=== PATIENT | male | born 1975 | race African-American/Black ===

== ENCOUNTER → 2016-09-22 | Outpatient (CLI) | payer OTHER ==
--- NOTE | 2016-09-22 08:20 | US ---
EXAMINATION TYPE: US scrotum with doppler. Grayscale and color Doppler Duplex imaging performed of t he scrotum. DATE OF EXAM: 09/22/2016 8:06 AM COMPARISON: NONE CLINICAL HISTORY: N50.89 Other specified disorders of the male genital organs. left testicular pain/p ressure EXAM MEASUREMENTS: TESTICLES: Right Testicle: 4.6 x 2.6 x 3.0 cm Left Testicle: 4.5 x 2.7 x 2.8 cm EPIDIDYMIS HEAD: Right Epididymis: 0.8 x 0.7 x 1.0 cm Left Epididymis: 0.9 x 0.8 x 1.1 cm Doppler performed to assess for testicular vascularity; good bilateral color flow and waveforms are s een. There is no evidence of testicular torsion. minimal fluid seen bilaterally, more on left. IMPRESSION: Tiny bilateral hydroceles.
== END | disposition home or self-care (01) ==
LOC: RADUSWWP 07:29
PROVIDERS: ATTEND Internal Medicine
DX: N43.2 Other hydrocele (principal)
CPT/HCPCS: 76870; 93975

== ENCOUNTER 2017-03-18 13:29 | Emergency (ER) | payer OTHER ==
[2017-03-18] MEDS ORDERED: HYDROmorphone 1 MG/ML 1 ML SYRINGE IVP STA (13:39)
[2017-03-18] MEDS ORDERED: ONDANSETRON 4 MG/2 ML VIAL IVP STA (13:39)
[2017-03-18 14:00] LABS: Anisocytosis Slight; Basophils # (A) 0.1 k/uL (0-0.2); Basophils % (A) 1 %; CH 26.5; CHCM 32.4; Eosinophils # (A) 0.3 k/uL (0-0.7); Eosinophils % (A) 3 %; HCT 51.7 % (39.0-53.0); HDW 2.67; HGB 15.8 gm/dL (13.0-17.5); Luc # (Auto) 0.16; Luc % (Auto) 2; Lymphocytes # (A) 3.6 k/uL (1.0-4.8); Lymphocytes % (A) 34 %; MCH 25.1 pg (25.0-35.0); MCHC 30.6 g/dL (31.0-37.0); MCV 82.2 fL (80.0-100.0); Mean Platelet Volume 7.9; Monocytes # (A) 0.6 k/uL (0-1.0); Monocytes % (A) 6 %; Neutrophils % (A) 56 %; RBC 6.29 m/uL (4.30-5.90); WBC 10.8 k/uL (3.8-10.6); WBC (Perox) 10.61
[2017-03-18 14:09] LABS: Appearance,Urine Clear (Clear); Bacteria,Urine Rare /hpf; Bilirubin,Urine Negative (Negative); Glucose,Urine (UA) Negative (Negative); Ketones,Urine Negative (Negative); Leukocyte Esterase,Urine Negative (Negative); Mucus,Urine Moderate /hpf; Nitrite,Urine Negative (Negative); PH, Urine 5.5 (5.0-8.0); Particle Count 4731; Protein,Urine Trace (Negative); RBC,Urine >182 /hpf (0-5); Specific Gravity,Urine 1.024 (1.001-1.035); Squamous Epithelial Cell,Urine <1 /hpf (0-4); UA Billing (MACRO vs. MICRO) MICRO; WBC,Urine 1 /hpf (0-5)
[2017-03-18 14:10] LABS: ALT 28 U/L (21-72); AST 25 U/L (17-59); Alkaline Phosphatase 50 U/L (38-126); Anion Gap 12 mmol/L; Blood Urea Nitrogen 21 mg/dL (9-20); Calcium 9.5 mg/dL (8.4-10.2); Carbon Dioxide 20 mmol/L (22-30); Chloride 109 mmol/L (98-107); Glucose 123 mg/dL (74-99); Non-African American GFR(MDRD) >60 (>60 ml/min/1.73 sqM); Potassium 4.2 mmol/L (3.5-5.1); Sodium 141 mmol/L (137-145); Total Bilirubin 0.5 mg/dL (0.2-1.3)
--- NOTE | 2017-03-18 14:34 | US ---
EXAMINATION TYPE: US scrotum with doppler. Grayscale and color Doppler Duplex imaging performed of t keri scrotum. DATE OF EXAM: 03/18/2017 COMPARISON: 09/22/2016 CLINICAL HISTORY: Extreme pain in groin, scrotum and pelvis. EXAM MEASUREMENTS: TESTICLES: Right Testicle: 4.5 x 2.5 x 2.8 cm Left Testicle: 4.7 x 2.2 x 3.0 cm EPIDIDYMIS HEAD: Right Epididymis: 1.0 cm Left Epididymis: 1.0 cm Doppler performed to assess for testicular vascularity; good bilateral color flow and waveforms are s een. There is no evidence of testicular torsion. Presence of hydroceles: no Presence of varicoceles: Patient unable to perform valsalva due to extreme pain IMPRESSION: Negative exam. No evidence of testicular torsion or mass. Small bilateral hydroceles bonnie lar to old exam.
[2017-03-18] MEDS ORDERED: LORazepam 2 MG/ML SYRINGE IV STA (14:41)
[2017-03-18] MEDS ORDERED: KETOROLAC 30 MG/ML 1 ML VIAL IVP STA (14:41)
--- NOTE | 2017-03-18 14:55 | CT ---
EXAMINATION TYPE: CT abdomen pelvis wo con DATE OF EXAM: 03/18/2017 COMPARISON: NONE HISTORY: RLQ and Right groin pain CT DLP: 2430 mGycm Automated exposure control for dose reduction was used. TECHNIQUE: Helical acquisition of images was performed from the lung bases through the pelvis. FINDINGS: Lung bases are clear. There is no pleural effusion. Liver spleen pancreas gallbladder appear normal. Bile ducts are not dilated. There is no adrenal mass. Kidneys have normal size and contour. There is slight fullness of the right upper collecting system. I see no calculus within the kidneys. There is no evidence of a renal mass. There is a 2 mm calcification at the floor of the pelvis on the right side that could be a stone in the distal right ureter. Bladder is almost empty. There is no evidence of a pelvic mass. I see no intestinal wall thickening. There are no dilated loops. Appendix appears normal. There is no retroperitoneal adenopathy. There is no ascites. There is posterior moderate disc herniat ion at L4-5 with spinal stenosis and calcification. There is facet arthropathy and developmentally sm all spinal canal and some spinal stenosis is present also at L3-4. There is 2 x 1 cm umbilical hernia that contains omental fat. IMPRESSION: THERE IS VERY MILD RIGHT-SIDED HYDRONEPHROSIS AND I SUSPECT A TINY CALCULUS AT THE RIGHT URETEROVESIC AL JUNCTION. NORMAL APPENDIX. SPINAL STENOSIS AT L3-4 AND L4-5. SMALL UMBILICAL HERNIA.
--- NOTE | 2017-03-18 15:01 | ED ---
Abdominal Pain HPI - General Chief Complaint: Abdominal Pain Stated Complaint: Abd Pain Time Seen by Provider: 03/18/17 13:38 Source: patient, RN notes reviewed Mode of arrival: wheelchair Limitations: no limitations - History of Present Illness Initial Comments: 41-year-old male presents emergency Department chief complaint of right lower quadrant abdominal pain, right testicular pain. Patient states this started earlier today. Patient has no history kidney stones. Patient's and nausea and states it feels like he has to have a bowel movement denies any diarrhea, constipation vomiting patient denies any dysuria hematuria. Patient had no prior abdominal surgeries. - Related Data Home Medications Medication Instructions Recorded Confirmed Naproxen [Naprosyn] 375 mg PO Q12HR 03/18/17 03/18/17 amLODIPine [Norvasc] 5 mg PO DAILY 03/18/17 03/18/17 Previous Rx's Medication Instructions Recorded Hydrocodone/Acetaminophen [Gratis 1 tab PO Q6HR PRN #20 tab 03/18/17 5-325] Ibuprofen [Motrin] 600 mg PO Q8HR PRN #30 tab 03/18/17 Ondansetron Odt [Zofran Odt] 4 mg PO Q8HR PRN #10 tab 03/18/17 Tamsulosin [Flomax] 0.4 mg PO DAILY #7 cap 03/18/17 Allergies Allergy/AdvReac Type Severity Reaction Status Date / Time Penicillins Allergy Unknown Verified 03/18/17 14:01 Review of Systems ROS Statement: Those systems with pertinent positive or pertinent negative responses have been documented in the HPI. ROS Other: All systems not noted in ROS Statement are negative. Past Medical History Past Medical History: Hypertension History of Any Multi-Drug Resistant Organisms: None Reported Past Surgical History: No Surgical Hx Reported Past Psychological History: No Psychological Hx Reported Smoking Status: Current every day smoker Past Alcohol Use History: None Reported Past Drug Use History: None Reported General Exam Limitations: no limitations General appearance: alert, in no apparent distress Head exam: Present: atraumatic, normocephalic, normal inspection Respiratory exam: Present: normal lung sounds bilaterally. Absent: respiratory distress, wheezes, rales, rhonchi, stridor Cardiovascular Exam: Present: regular rate, normal rhythm, normal heart sounds. Absent: systolic murmur, diastolic murmur, rubs, gallop, clicks GI/Abdominal exam: Present: soft, tenderness (mild right-sided right flank), normal bowel sounds. Absent: distended, guarding, rebound, rigid Back exam: Present: CVA tenderness (R). Absent: CVA tenderness (L) Neurological exam: Present: alert, oriented X3, CN II-XII intact Course Vital Signs 03/18/17 03/18/17 13:32 14:50 Temperature 98.4 F Pulse Rate 74 67 Respiratory 18 22 Rate Blood Pressure 179/109 169/82 O2 Sat by Pulse 99 96 Oximetry Medical Decision Making - Medical Decision Making 41-year-old presented for right flank right lower quadrant abdominal pain. patient has a 2 mm uvj stone. patient will be discharged with pain medication, flomax, and denies medication. return parameters were discussed. - Lab Data Result diagrams: 03/18/17 13:43 03/18/17 13:43 Lab Results 03/18/17 03/18/17 03/18/17 Range/Units 13:43 13:43 13:50 WBC 10.8 H (3.8-10.6) k/uL RBC 6.29 H (4.30-5.90) m/uL Hgb 15.8 (13.0-17.5) gm/dL Hct 51.7 (39.0-53.0) % MCV 82.2 (80.0-100.0) fL MCH 25.1 (25.0-35.0) pg MCHC 30.6 L (31.0-37.0) g/dL RDW 16.0 H (11.5-15.5) % Plt Count 211 (150-450) k/uL Neutrophils % 56 % Lymphocytes % 34 % Monocytes % 6 % Eosinophils % 3 % Basophils % 1 % Neutrophils # 6.0 (1.3-7.7) k/uL Lymphocytes # 3.6 (1.0-4.8) k/uL Monocytes # 0.6 (0-1.0) k/uL Eosinophils # 0.3 (0-0.7) k/uL Basophils # 0.1 (0-0.2) k/uL Anisocytosis Slight Sodium 141 (137-145) mmol/L Potassium 4.2 (3.5-5.1) mmol/L Chloride 109 H (98-107) mmol/L Carbon Dioxide 20 L (22-30) mmol/L Anion Gap 12 mmol/L BUN 21 H (9-20) mg/dL Creatinine 1.04 (0.66-1.25) mg/dL Est GFR (MDRD) Af Amer >60 (>60 ml/min/1.73 sqM) Est GFR (MDRD) Non-Af >60 (>60 ml/min/1.73 sqM) Glucose 123 H (74-99) mg/dL Calcium 9.5 (8.4-10.2) mg/dL Total Bilirubin 0.5 (0.2-1.3) mg/dL AST 25 (17-59) U/L ALT 28 (21-72) U/L Alkaline Phosphatase 50 (38-126) U/L Total Protein 7.0 (6.3-8.2) g/dL Albumin 4.2 (3.5-5.0) g/dL Urine Color Yellow Urine Appearance Clear (Clear) Urine pH 5.5 (5.0-8.0) Ur Specific [place] 1.024 (1.001-1.035) Urine Protein Trace H (Negative) Urine Glucose (UA) Negative (Negative) Urine Ketones Negative (Negative) Urine Blood Large H (Negative) Urine Nitrite Negative (Negative) Urine Bilirubin Negative (Negative) Urine Urobilinogen 2.0 (<2.0) mg/dL Ur Leukocyte Esterase Negative (Negative) Urine RBC >182 H (0-5) /hpf Urine WBC 1 (0-5) /hpf Ur Squamous Epith Cells <1 (0-4) /hpf Urine Bacteria Rare H (None) /hpf Urine Mucus Moderate H (None) /hpf Disposition Clinical Impression: Ureteral calculi, Abdominal pain Disposition: HOME SELF-CARE Condition: Stable Instructions: Kidney Stones (ED) Additional Instructions: Please return to the Emergency Department if symptoms worsen or any other concerns. Prescriptions: Hydrocodone/Acetaminophen [Gratis 5-325] 1 tab PO Q6HR PRN #20 tab PRN Reason: Pain Ibuprofen [Motrin] 600 mg PO Q8HR PRN #30 tab PRN Reason: Pain Ondansetron Odt [Zofran Odt] 4 mg PO Q8HR PRN #10 tab PRN Reason: Nausea Tamsulosin [Flomax] 0.4 mg PO DAILY #7 cap Referrals: Beverly Wills MD [Primary Care Provider] - 1-2 days Time of Disposition: 15:00
[2017-03-18 15:28] VITALS: BP 166/76; PULSE 66; RESP 18; TEMP 97.9
== END 2017-03-18 15:25 | disposition home or self-care (01) ==
LOC: EC 13:29
DX: N20.1 Calculus of ureter (principal); N50.811 Right testicular pain; R11.0 Nausea; I10 Essential (primary) hypertension; F17.200 Nicotine dependence, unspecified, uncomplicated; Z79.899 Other long term (current) drug therapy; Z88.0 Allergy status to penicillin
CPT/HCPCS: 36415; 80053; 85025; 81001; 93975; 76870; 74176; 99284; 96374; 96375 ×3; J2060; J2405; J1885; J1170

== ENCOUNTER 2017-07-15 14:58 | Inpatient (IN) | payer OTHER ==
[2017-07-15] MEDS ORDERED: SODIUM CHLORIDE 0.9% 1,000 ML IV STA ×3 (15:20→16:50)
[2017-07-15] MEDS ORDERED: SODIUM CHLORIDE 0.9% 500 ML IV STA ×2 (15:20→16:50)
[2017-07-15] MEDS ORDERED: IPRATROPIUM-ALBUTEROL 3 ML NEB INHALATION STA (15:21)
[2017-07-15] MEDS ORDERED: ACETAMINOPHEN IV (For NPO) 1,000 MG in EMPTY BAG 1 BAG IVPB STA (15:21)
[2017-07-15] MEDS ORDERED: KETOROLAC 30 MG/ML 1 ML VIAL IVP STA (15:21)
[2017-07-15] MEDS ORDERED: AZITHROMYCIN 500 MG in SODIUM CHLORIDE 0.9% 250 ML IVPB STA (15:28)
--- NOTE | 2017-07-15 15:28 | ED ---
General Adult HPI - General Chief complaint: Shortness of Breath Stated complaint: Allergic Reaction Time Seen by Provider: 07/15/17 15:05 Source: patient, EMS, RN notes reviewed, old records reviewed Mode of arrival: EMS Limitations: no limitations - History of Present Illness Initial comments: This is a 42-year-old male to the ER for evaluation. Patient is safe for evaluation regards to multiple complaints. Patient 22 of shortness of breath body 8 chest pain abdominal pain fever nasal congestion right ear pain. Patient also complains of significant diarrhea consistent diarrhea for about 3 days now occasional blood. Patient has asked history of smoking. Patient states he takes no significant medical medications on a regular basis. Per EMS to transfer patient was given steroids for cough and shortness of breath and he became even worsening shortness of breath like his throat was closing was given epi and that did resolve. Patient states at this time he feels I do not think is in a passed out. - Related Data Home Medications Medication Instructions Recorded Confirmed amLODIPine [Norvasc] 5 mg PO DAILY 03/18/17 07/15/17 Escitalopram [Lexapro] 10 mg PO DAILY 07/15/17 07/15/17 traMADol HCL [Ultram] 50 mg PO DAILY PRN 07/15/17 07/15/17 Previous Rx's Medication Instructions Recorded Ibuprofen [Motrin] 600 mg PO Q8HR PRN #30 tab 03/18/17 Allergies Allergy/AdvReac Type Severity Reaction Status Date / Time methylprednisolone Allergy Severe Anaphylaxis Verified 07/15/17 15:21 Penicillins Allergy Unknown Verified 03/18/17 14:01 Review of Systems ROS Statement: Those systems with pertinent positive or pertinent negative responses have been documented in the HPI. ROS Other: All systems not noted in ROS Statement are negative. Past Medical History Past Medical History: Hypertension History of Any Multi-Drug Resistant Organisms: None Reported Past Surgical History: No Surgical Hx Reported Past Psychological History: PTSD Smoking Status: Current every day smoker Past Alcohol Use History: None Reported Past Drug Use History: None Reported General Exam Limitations: no limitations General appearance: alert, in no apparent distress, anxious Head exam: Present: atraumatic, normocephalic, normal inspection Eye exam: Present: normal appearance, PERRL, EOMI. Absent: scleral icterus, conjunctival injection, periorbital swelling ENT exam: Present: normal exam, mucous membranes moist. Absent: TM's normal bilaterally (Patient does have right ear TM purulence) Neck exam: Present: normal inspection. Absent: tenderness, meningismus, lymphadenopathy Respiratory exam: Present: normal lung sounds bilaterally. Absent: respiratory distress, wheezes, rales, rhonchi, stridor Cardiovascular Exam: Present: normal rhythm, tachycardia, normal heart sounds. Absent: systolic murmur, diastolic murmur, rubs, gallop, clicks GI/Abdominal exam: Present: soft, normal bowel sounds. Absent: distended, tenderness, guarding, rebound, rigid Extremities exam: Present: normal inspection, full ROM, normal capillary refill. Absent: tenderness, pedal edema, joint swelling, calf tenderness Back exam: Present: normal inspection Neurological exam: Present: alert, oriented X3, CN II-XII intact Psychiatric exam: Present: normal affect, normal mood Skin exam: Present: warm, dry, intact, normal color. Absent: rash Course Vital Signs 07/15/17 07/15/17 07/15/17 15:15 15:59 16:13 Temperature 100.9 F H Pulse Rate 106 H 97 99 Respiratory 24 Rate Blood Pressure 146/83 O2 Sat by Pulse 96 Oximetry 07/15/17 16:21 Temperature Pulse Rate 103 H Respiratory 22 Rate Blood Pressure 146/66 O2 Sat by Pulse 95 Oximetry - Reevaluation(s) Reevaluation #1: 07/15/17 16:54 Patient feels significantly improved with fever control and resuscitation EKG Findings - EKG Comments: EKG Findings:: EKG shows normal sinus rhythm rate of 100, CO 140, QRS 96, QTc 446 Medical Decision Making - Medical Decision Making 42 male the ER for evaluation of cough and congestion, fever, diarrhea. Patient does have flu a with severe dehydration, patient will be admitted for a left shoulder replacement, resuscitation and monitoring of hemodynamic status. - Lab Data Result diagrams: 07/15/17 16:10 07/15/17 16:10 Lab Results 07/15/17 07/15/17 07/15/17 Range/Units 15:45 16:10 16:10 WBC 11.6 H (3.8-10.6) k/uL RBC 5.66 (4.30-5.90) m/uL Hgb 14.5 (13.0-17.5) gm/dL Hct 44.7 (39.0-53.0) % MCV 79.0 L (80.0-100.0) fL MCH 25.6 (25.0-35.0) pg MCHC 32.4 (31.0-37.0) g/dL RDW 15.7 H (11.5-15.5) % Plt Count 173 (150-450) k/uL Neutrophils % 82 % Lymphocytes % 11 % Monocytes % 4 % Eosinophils % 1 % Basophils % 1 % Neutrophils # 9.6 H (1.3-7.7) k/uL Lymphocytes # 1.3 (1.0-4.8) k/uL Monocytes # 0.5 (0-1.0) k/uL Eosinophils # 0.1 (0-0.7) k/uL Basophils # 0.1 (0-0.2) k/uL PT (9.0-12.0) sec INR (<1.2) APTT (22.0-30.0) sec D-Dimer (<0.60) mg/L FEU Sodium (137-145) mmol/L Potassium (3.5-5.1) mmol/L Chloride (98-107) mmol/L Carbon Dioxide (22-30) mmol/L Anion Gap mmol/L BUN (9-20) mg/dL Creatinine (0.66-1.25) mg/dL Est GFR (MDRD) Af Amer (>60 ml/min/1.73 sqM) Est GFR (MDRD) Non-Af (>60 ml/min/1.73 sqM) Glucose (74-99) mg/dL Plasma Lactic Acid Yousif (0.7-2.0) mmol/L Calcium (8.4-10.2) mg/dL Phosphorus (2.5-4.5) mg/dL Magnesium (1.6-2.3) mg/dL Total Bilirubin (0.2-1.3) mg/dL AST (17-59) U/L ALT (21-72) U/L Alkaline Phosphatase (38-126) U/L Total Protein (6.3-8.2) g/dL Albumin (3.5-5.0) g/dL Urine Color Yellow Urine Appearance Clear (Clear) Urine pH 6.0 (5.0-8.0) Ur Specific [place] 1.030 (1.001-1.035) Urine Protein 2+ H (Negative) Urine Glucose (UA) Negative (Negative) Urine Ketones 1+ H (Negative) Urine Blood Trace H (Negative) Urine Nitrite Negative (Negative) Urine Bilirubin Negative (Negative) Urine Urobilinogen 2.0 (<2.0) mg/dL Ur Leukocyte Esterase Negative (Negative) Urine RBC 1 (0-5) /hpf Urine WBC 7 H (0-5) /hpf Ur Squamous Epith Cells 2 (0-4) /hpf Amorphous Sediment Rare H (None) /hpf Hyaline Casts 3 H (0-2) /lpf Urine Mucus Many H (None) /hpf Influenza Type A RNA Detected H (Not Detectd) Influenza Type B (PCR) Not Detected (Not Detectd) 07/15/17 07/15/17 07/15/17 Range/Units 16:10 16:10 16:10 WBC (3.8-10.6) k/uL RBC (4.30-5.90) m/uL Hgb (13.0-17.5) gm/dL Hct (39.0-53.0) % MCV (80.0-100.0) fL MCH (25.0-35.0) pg MCHC (31.0-37.0) g/dL RDW (11.5-15.5) % Plt Count (150-450) k/uL Neutrophils % % Lymphocytes % % Monocytes % % Eosinophils % % Basophils % % Neutrophils # (1.3-7.7) k/uL Lymphocytes # (1.0-4.8) k/uL Monocytes # (0-1.0) k/uL Eosinophils # (0-0.7) k/uL Basophils # (0-0.2) k/uL PT 10.3 (9.0-12.0) sec INR 1.1 (<1.2) APTT 27.0 (22.0-30.0) sec D-Dimer 0.39 (<0.60) mg/L FEU Sodium 138 (137-145) mmol/L Potassium 3.3 L (3.5-5.1) mmol/L Chloride 102 (98-107) mmol/L Carbon Dioxide 23 (22-30) mmol/L Anion Gap 13 mmol/L BUN 14 (9-20) mg/dL Creatinine 0.82 (0.66-1.25) mg/dL Est GFR (MDRD) Af Amer >60 (>60 ml/min/1.73 sqM) Est GFR (MDRD) Non-Af >60 (>60 ml/min/1.73 sqM) Glucose 153 H (74-99) mg/dL Plasma Lactic Acid Yousif 3.7 H* (0.7-2.0) mmol/L Calcium 8.8 (8.4-10.2) mg/dL Phosphorus 2.0 L (2.5-4.5) mg/dL Magnesium 1.8 (1.6-2.3) mg/dL Total Bilirubin 0.4 (0.2-1.3) mg/dL AST 40 (17-59) U/L ALT 58 (21-72) U/L Alkaline Phosphatase 79 (38-126) U/L Total Protein 6.2 L (6.3-8.2) g/dL Albumin 3.7 (3.5-5.0) g/dL Urine Color Urine Appearance (Clear) Urine pH (5.0-8.0) Ur Specific [place] (1.001-1.035) Urine Protein (Negative) Urine Glucose (UA) (Negative) Urine Ketones (Negative) Urine Blood (Negative) Urine Nitrite (Negative) Urine Bilirubin (Negative) Urine Urobilinogen (<2.0) mg/dL Ur Leukocyte Esterase (Negative) Urine RBC (0-5) /hpf Urine WBC (0-5) /hpf Ur Squamous Epith Cells (0-4) /hpf Amorphous Sediment (None) /hpf Hyaline Casts (0-2) /lpf Urine Mucus (None) /hpf Influenza Type A RNA (Not Detectd) Influenza Type B (PCR) (Not Detectd) - Radiology Data Radiology results: report reviewed (Chest x-ray with KUB is negative), image reviewed Disposition Clinical Impression: Acute exacerbation of chronic obstructive airways disease, Influenza A, Fever Disposition: ADMITTED IP TO THIS HOSP Condition: Good Referrals: Beverly Wills MD [Primary Care Provider] - 1-2 days
[2017-07-15 16:26] LABS: Basophils # (A) 0.1 k/uL (0-0.2); Basophils % (A) 1 %; Eosinophils # (A) 0.1 k/uL (0-0.7); Eosinophils % (A) 1 %; HCT 44.7 % (39.0-53.0); HGB 14.5 gm/dL (13.0-17.5); Lymphocytes # (A) 1.3 k/uL (1.0-4.8); Lymphocytes % (A) 11 %; MCH 25.6 pg (25.0-35.0); MCHC 32.4 g/dL (31.0-37.0); Mean Platelet Volume 7.6; Monocytes # (A) 0.5 k/uL (0-1.0); Monocytes % (A) 4 %; Neutrophils # (A) 9.6 k/uL (1.3-7.7); Neutrophils % (A) 82 %; Platelet Count 173 k/uL (150-450); RBC 5.66 m/uL (4.30-5.90); RDW 15.7 % (11.5-15.5); WBC 11.6 k/uL (3.8-10.6)
[2017-07-15] MEDS ORDERED: OSELTAMIVIR 75 MG CAP PO STA (16:30)
[2017-07-15 16:39] LABS: ALT 58 U/L (21-72); AST 40 U/L (17-59); Albumin 3.7 g/dL (3.5-5.0); Alkaline Phosphatase 79 U/L (38-126); Anion Gap 13 mmol/L; Blood Urea Nitrogen 14 mg/dL (9-20); Calcium 8.8 mg/dL (8.4-10.2); Carbon Dioxide 23 mmol/L (22-30); Chloride 102 mmol/L (98-107); Glucose 153 mg/dL (74-99); Magnesium 1.8 mg/dL (1.6-2.3); Potassium 3.3 mmol/L (3.5-5.1); Sodium 138 mmol/L (137-145); Total Bilirubin 0.4 mg/dL (0.2-1.3); Total Protein 6.2 g/dL (6.3-8.2)
[2017-07-15 16:40] LABS: D-Dimer 0.39 mg/L FEU (<0.60); INR 1.1 (<1.2); Prothrombin Time 10.3 sec (9.0-12.0)
[2017-07-15 16:47] LABS: Amorphous Sediment,Urine Rare /hpf; Appearance,Urine Clear (Clear); Bilirubin,Urine Negative (Negative); Blood,Urine Trace (Negative); Color,Urine Yellow; Glucose,Urine (UA) Negative (Negative); Hyaline Casts,Urine 3 /lpf (0-2); Ketones,Urine 1+ (Negative); Leukocyte Esterase,Urine Negative (Negative); Mucus,Urine Many /hpf; Nitrite,Urine Negative (Negative); Protein,Urine 2+ (Negative); RBC,Urine 1 /hpf (0-5); Squamous Epithelial Cell,Urine 2 /hpf (0-4); WBC,Urine 7 /hpf (0-5)
[2017-07-15] MEDS ORDERED: POTASSIUM CHLORIDE 10 MEQ in WATER FOR INJECTION 1 100ML.BAG IVPB STA (16:50)
[2017-07-15] MEDS ORDERED: POTASSIUM CHLORIDE 20 MEQ in WATER FOR INJECTION 1 100ML.BAG IVPB STA (16:50)
[2017-07-15] MEDS ORDERED: SODIUM CHLORIDE 0.9% 1,000 ML IV ONE (16:50)
[2017-07-15 16:52] LABS: Creatine Kinase 149 U/L (55-170)
[2017-07-15] MEDS ORDERED: ONDANSETRON 4 MG/2 ML VIAL IVP PRN (16:52)
[2017-07-15] MEDS ORDERED: PANTOPRAZOLE 40 MG/10 ML VIAL IVP STA (16:52)
[2017-07-15] MEDS ORDERED: ONDANSETRON 4 MG/2 ML VIAL IVP STA (16:52)
[2017-07-15] MEDS ORDERED: ACETAMINOPHEN TAB 325 MG TAB PO PRN (16:52)
--- NOTE | 2017-07-15 16:54 | XR ---
EXAMINATION TYPE: XR abdomen acute w cxr DATE OF EXAM: 07/15/2017 COMPARISON: NONE HISTORY: Chest pain TECHNIQUE: Supine, upright, and left side down lateral decubitus views of the abdomen are obtained. FINDINGS: There is no evidence for pneumoperitoneum. The bowel gas pattern is unremarkable as there is air throughout nondilated small and large bowel. No sizeable air fluid levels. No mass effects are seen. No unusual calcifications. IMPRESSION: Unremarkable study
[2017-07-15 17:06] LABS: Creatine Kinase MB 1.4 ng/mL (0.0-2.4); Troponin I <0.012 ng/mL (0.000-0.034)
[2017-07-15] MEDS: IPRATROPIUM-ALBUTEROL 3 ML NEB INHALATION SCH (19:15)
[2017-07-15 20:55] VITALS: BMI 50.2
[2017-07-15] MEDS: OSELTAMIVIR 75 MG CAP PO SCH (21:00)
[2017-07-15] MEDS ORDERED: TEMAZEPAM 15 MG CAP PO PRN (23:56)
[2017-07-16] MEDS ORDERED: amLODIPine 5 MG TAB PO STA (00:04)
[2017-07-16] MEDS ORDERED: ESCITALOPRAM 10 MG TAB PO STA (00:04)
[2017-07-16] MEDS ORDERED: traMADol 50 MG TAB PO PRN (01:29)
[2017-07-16] MEDS: 0.9% NACL WITH KCL 40 MEQ/L 1,000 ML IV SCH ×4 (03:49→21:15)
[2017-07-16] MEDS: OSELTAMIVIR 75 MG CAP PO SCH ×2 (08:46→21:15)
[2017-07-16] MEDS: IPRATROPIUM-ALBUTEROL 3 ML NEB INHALATION SCH ×4 (08:58→19:49)
[2017-07-16] MEDS ORDERED: PANTOPRAZOLE 40 MG/10 ML VIAL IVP SCH (09:00)
--- NOTE | 2017-07-16 13:41 | XR ---
EXAMINATION TYPE: XR chest 2V DATE OF EXAM: 07/16/2017 COMPARISON: NONE HISTORY: Shortness of breath TECHNIQUE: Frontal and lateral views of the chest are obtained. FINDINGS: Increased markings right medial lung base. Developing infiltrate is difficult to exclude. Correlate c linically. No evidence for pneumothorax. No pleural effusion. The cardiac silhouette size is within normal limits. The osseous structures are grossly intact. IMPRESSION: 1. Increased markings right medial lung base. Developing infiltrate is difficult to exclude. Correla te clinically.
[2017-07-16 14:28] LABS: Basophils % (A) 0 %; Eosinophils # (A) 0.1 k/uL (0-0.7); Eosinophils % (A) 1 %; HGB 14.8 gm/dL (13.0-17.5); Hypochromasia Slight; Lymphocytes # (A) 1.3 k/uL (1.0-4.8); Lymphocytes % (A) 14 %; MCH 25.1 pg (25.0-35.0); MCHC 31.6 g/dL (31.0-37.0); MCV 79.5 fL (80.0-100.0); Mean Platelet Volume 7.5; Monocytes # (A) 0.6 k/uL (0-1.0); Monocytes % (A) 7 %; Neutrophils # (A) 7.2 k/uL (1.3-7.7); Neutrophils % (A) 77 %; Platelet Count 193 k/uL (150-450); RBC 5.91 m/uL (4.30-5.90); RDW 15.8 % (11.5-15.5); WBC 9.4 k/uL (3.8-10.6)
[2017-07-16 14:40] LABS: Anion Gap 10 mmol/L; Blood Urea Nitrogen 14 mg/dL (9-20); Calcium 8.8 mg/dL (8.4-10.2); Carbon Dioxide 24 mmol/L (22-30); Chloride 108 mmol/L (98-107); Glucose 107 mg/dL (74-99); Potassium 4.2 mmol/L (3.5-5.1); Sodium 142 mmol/L (137-145)
[2017-07-16] MEDS ORDERED: HYDROcodone/APAP 5-325MG 1 EACH TAB PO PRN (15:28)
[2017-07-16] MEDS ORDERED: ALPRAZolam 0.25 MG TAB PO PRN (15:28)
[2017-07-16 16:00] VITALS: RESP 18
[2017-07-16] MEDS ORDERED: LEVOFLOXACIN 500MG-D5W PMX 500 MG in DEXTROSE/WATER 1 100ML.BAG IVPB SCH (16:00)
[2017-07-16] MEDS: NICOTINE 14MG/24HR PATCH TRANSDERM SCH (16:03)
--- NOTE | 2017-07-16 17:03 | PN ---
PROGRESS NOTE DATE OF SERVICE: 07/16/2017. INTERVAL HISTORY: This 42-year-old gentleman admitted with acute influenza and possible sepsis is closely monitored. Lactic acid is also elevated. No chest pain. No palpitations. No fever. PHYSICAL EXAM: Alert and oriented. Pulse is 96, blood pressure ntd, temperature 99.9, pulse ox is 98% 2 L, respiration 24. HEENT: Conjunctivae normal. NECK: No jugular venous distention. CARDIOVASCULAR: S1, S2. RESPIRATORY: Breath sounds diminished in the bases. A few scattered rhonchi and crackles. ABDOMEN: Soft, nontender. No mass palpable. LEGS: No edema. NERVOUS SYSTEM: No focal deficits. LAB STUDIES: WBC 9.9, hemoglobin is 14.8, sodium 142, potassium 4.2, and lactic acid 1.6. ASSESSMENT: 1. Acute influenza A with possible sepsis. 2. Increased lactic acid. 3. Increased WBC. 4. Diarrhea. 5. Rule out gastrointestinal bleed. 6. Asthma. 7. Hypertension. 8. History of right foot multiple stress fractures. 9. History of bronchial asthma. 10.History of posttraumatic stress disorder. 11.History of nicotine dependence. RECOMMENDATIONS AND DISCUSSION: This 42-year-old gentleman who presented with multiple complex medical issues, will monitor the patient closely. Continue the Tamiflu. Continue the broad-spectrum IV antibiotics. Follow the cultures. Continue IV fluids and repeat lactic acid. I would also recommend further evaluation for the GI bleed including colonoscopy and EGD as an outpatient. Discussed with the patient who understands and agrees and Dr. Wills will follow the patient in the outpatient setting. MMODL / IJN: [id number] / [facility] CENTERFausto
--- NOTE | 2017-07-16 17:16 | HP ---
HISTORY AND PHYSICAL DATE OF ADMISSION: 07/15/2017 CHIEF COMPLAINT: Shortness of breath and as well as diarrhea. HISTORY OF PRESENT ILLNESS: This 42-year-old gentleman with a past medical history of multiple medical problems including asthma, hypertension, history of right foot multiple stress fractures, history of bronchial asthma, being followed by Dr. Wills in the outpatient setting. The patient is not feeling well over the past several days. The patient initially had nausea, fever, vomiting and as well as some diarrhea. The patient also complaining of shortness of breath also. Patient has noted some blood in the diarrhea stools today. The patient came to [facility] and was admitted for further evaluation and treatment. Patient also has some cough, shortness of breath also. The patient had acute abdominal series on admission which was unremarkable, but however the patient's influenza A was positive and the patient admitted for further evaluation and treatment. Lactic acid also elevated to 2.7. There is no history of fever, rigors or chills. No history of headache, loss of consciousness, seizures. PAST MEDICAL HISTORY: History of asthma, hypertension, history of multiple stress fractures, history of PTSD, history of nicotine dependence. MEDICATIONS: Prior to admission: 1. Lexapro 10 mg q.h.s. 2. Norvasc 5 mg. 3. Ultram 50 mg daily p.r.n. 4. Motrin 600 mg p.o. p.r.n. ALLERGIES: METHYLPREDNISONE. PENICILLIN. FAMILY HISTORY: No history of heart disease or strokes in family. SOCIAL HISTORY: History of smoking, history of THC. REVIEW OF SYSTEMS: ENT: No diminished hearing or vision. CARDIOVASCULAR: As mentioned earlier. GI: As mentioned earlier. no dysuria or retention. Nervous system: No numbness, weakness. ALLERGY/IMMUNOLOGY: Asthma present. MUSCULOSKELETAL: As mentioned earlier. HEMATOLOGY/ONCOLOGY: No history of anemia. Endocrine: No diabetes or hypothyroidism. Constitutional: As mentioned earlier. Dermatology: Negative. Rheumatology: Negative. Psychiatric: As mentioned earlier. PHYSICAL EXAMINATION: Patient is alert, oriented x3. The pulse is 96, blood pressure 144/96, respiration 24, temperature 99.9, pulse ox 98% on 2 L. HEENT conjunctivae normal. Oral mucosa moist. Neck is no jugular venous distention. No carotid bruit. No lymph node enlargement. Cardiovascular S1-S2, no S3, no S4. Respiratory: Breath sounds diminished in the bases. A few scattered rhonchi and crackles. Breathing efforts increased. ABDOMEN: Soft, obese, nontender. No mass palpable. Legs no edema. No swelling. NERVOUS SYSTEM: Higher functions as mentioned earlier, moves all 4 limbs. No focal motor or sensory deficits. Lymphatics: No lymph nodes palpable in the neck, axillae or groin. Skin no ulcer, rash or bleeding. LABS: WBC 7.2, hemoglobin 14.5, INR 1.1. Sodium 138, potassium 3.3, plasma lactic acid 2.7. ASSESSMENT: 1. Acute influenza with possibly early sepsis present on admission. 2. Diarrhea with lower gastrointestinal bleed. 3. Increased plasma lactic acid. 4. Increased WBC. 5. History of nicotine dependence. 6. Hypertension. 7. Asthma. 8. History of multiple surgeries, right foot with stress fractures. RECOMMENDATION AND DISCUSSION: In this 42-year-old gentleman who presented with multiple complex medical issues, we will monitor the patient closely. Continue the current medications, management and symptomatic treatment. Otherwise at this time I would recommend continue with current medications. Empiric antibiotics were given. Otherwise, Tamiflu initiated and will check C difficile, check plasma lactic acid. DVT prophylaxis. Resume the home medications. Guarded prognosis because of the multiple complex medical issues and further recommendations to follow. MMODL / IJN: [id number] /
[2017-07-16] MEDS ORDERED: ESCITALOPRAM 10 MG TAB PO SCH (21:00)
[2017-07-16] MEDS ORDERED: amLODIPine 5 MG TAB PO SCH (21:00)
[2017-07-16] MEDS ORDERED: amLODIPine 10 MG TAB PO SCH (21:00)
[2017-07-17] MEDS: 0.9% NACL WITH KCL 40 MEQ/L 1,000 ML IV SCH ×2 (05:55→09:49)
[2017-07-17] MEDS: NICOTINE 14MG/24HR PATCH TRANSDERM SCH (07:02)
[2017-07-17] MEDS: OSELTAMIVIR 75 MG CAP PO SCH (07:05)
[2017-07-17] MEDS ORDERED: PANTOPRAZOLE 40 MG TABLET PO SCH (07:30)
[2017-07-17] MEDS: IPRATROPIUM-ALBUTEROL 3 ML NEB INHALATION SCH ×2 (07:57→12:07)
[2017-07-17 08:05] VITALS: BP 138/70; TEMP 98.6
[2017-07-17 12:24] VITALS: PULSE 98
--- NOTE | 2017-07-18 09:05 | DS ---
DISCHARGE SUMMARY DATE OF SERVICE: 07/17/2017. FINAL DIAGNOSIS: 1. Acute influenza with possible sepsis present on admission. 2. Increased lactic acid, present on admission. 3. Increased WBC. 4. Diarrhea. 5. Rule out gastrointestinal bleed. 6. Asthma. 7. Hypertension. 8. History of right foot multiple stress fracture. 9. History of bronchial asthma. 10.History of posttraumatic stress disorder. 11.History of nicotine dependence. DISCHARGE DISPOSITION: The patient is being discharged in stable condition with guarded prognosis. HISTORY OF PRESENT ILLNESS: This 42-year-old gentleman with past medical history of multiple medical problems was admitted with acute influenza A and as well as possible sepsis and lactic acid elevated. Treated with IV fluids and antibiotics improved significantly. On exam, vitals are stable. Cardiovascular: S1, S2 muffled. Abdomen soft. Central nervous system: No focal deficits. DISCHARGE ADVICE AND MEDICATIONS: 1. Discharge diet is cardiac diet. 2. Activity limited until followup. 3. Follow up with Dr. Ku as advised for endoscopies. 4. Follow up with Dr. Wills in 2-3 days. MEDICATIONS: 1. Albuterol 8.5 q.i.d. p.r.n. 2. Norvasc 10 mg p.o. q.h.s. 3. Lexapro 10 mg q.h.s. 4. Levaquin 500 mg p.o. daily for 5 days. 5. Habitrol 14 daily. 6. Tamiflu 75 mg p.o. b.i.d. for 3 more days. 7. Protonix 40 mg daily. 8. Ultram 50 mg p.o. daily. Once again, the patient is being discharged in stable condition with guarded prognosis. MMODL / IJN: [id number] /
== END 2017-07-17 12:38 | disposition home or self-care (01) | DRG 872 ==
LOC: EC 14:58 → 5MS5E 16:51
PROVIDERS: ADMIT Hospitalist; ATTEND Hospitalist
DX: A41.9 Sepsis, unspecified organism (principal); J44.0 Chronic obstructive pulmonary disease with (acute) lower respiratory infection; J44.1 Chronic obstructive pulmonary disease with (acute) exacerbation; K92.2 Gastrointestinal hemorrhage, unspecified; F43.10 Post-traumatic stress disorder, unspecified; J10.1 Influenza due to other identified influenza virus with other respiratory manifestations; E86.0 Dehydration; R19.7 Diarrhea, unspecified; I10 Essential (primary) hypertension; J45.909 Unspecified asthma, uncomplicated; Z88.0 Allergy status to penicillin; Z87.891 Personal history of nicotine dependence; Z88.8 Allergy status to other drugs, medicaments and biological substances; Z79.899 Other long term (current) drug therapy; Z79.1 Long term (current) use of non-steroidal anti-inflammatories (NSAID)
CPT/HCPCS: 36415; 71046; 74022; 80048; 80053; 81001; 82550; 82553; 83605; 83735; 83880; 84100; 84484; 85025; 85379; 85610; 85730; 87040; 87086; 87324; 87502; 93005; 94640; 96361; 96365; 96375; 99285

== ENCOUNTER → 2017-07-23 | Outpatient (CLI) | payer OTHER ==
--- NOTE | 2017-07-24 00:06 | MR ---
EXAMINATION TYPE: MR ankle RT wo con DATE OF EXAM: 07/23/2017 COMPARISON: NONE HISTORY: Pain and Swelling Right Ankle, Standard multiplanar, multisequence MRI departmental protocol Multiplanar, multisequence images of the right ankle were acquired. FINDINGS: There is mild narrowing of the ankle joint space. There is mild ankle joint effusion. There is fluid posterior to the distal tibia. There is fluid around the posterior tibial tendon at the medial malle olus of the ankle. I see no tendon tear. The plantar fascia appears normal. The Achilles tendon is in tact. Ankle mortise is anatomic. I see no fracture line. I see no evidence of a soft tissue mass. There is some thinning on the coronal images of the medial collateral ligament. IMPRESSION: There is degenerative narrowing of the ankle joint space. Ankle joint effusion and fluid around the p osterior tibial tendon consistent with synovitis and tendinitis. There is some thinning of the medial collateral ligament that could relate to partial tear.
== END | disposition home or self-care (01) ==
LOC: RADMRIMAIN 20:57
PROVIDERS: ATTEND Podiatrist Foot & Ankle Surgery
DX: M25.471 Effusion, right ankle (principal)

== ENCOUNTER 2018-09-27 15:47 | Emergency (ER) | payer OTHER ==
[2018-09-27 15:52] VITALS: BP 186/79; PULSE 78; RESP 20; TEMP 98.4
[2018-09-27] MEDS ORDERED: LIDOCAINE 1% INJ 10MG/ML (20 ML MDV) SQ ONE (16:33)
--- NOTE | 2018-09-27 16:54 | ED ---
Skin/Abscess/FB HPI - General Chief complaint: Skin/Abscess/Foreign Body Stated complaint: Abscess Time Seen by Provider: 09/27/18 16:17 Source: patient, RN notes reviewed Mode of arrival: ambulatory Limitations: no limitations - History of Present Illness Initial comments: This a 43-year-old male presents emergency Department with chief complaint of ri ght-sided facial swelling and abscess. Patient states has been there for 4 days states that he was placed on Bactrim states that he had it poked by his PCP but states that they are getting out of a. Patient states has worsened. Patient reports no fever or chills no dental pain no head or neck pain. - Related Data Home Medications Medication Instructions Recorded Confirmed Escitalopram [Lexapro] 10 mg PO HS 07/15/17 09/27/18 Albuterol Nebulized [Ventolin 2.5 mg INHALATION RT-QID PRN 09/27/18 09/27/18 Nebulized] Albuterol Sulfate [Proair Hfa] 2 puff INHALATION RT-QID PRN 09/27/18 09/27/18 Ipratropium Nebulized [Atrovent 0.5 mg INHALATION RT-QID PRN 09/27/18 09/27/18 Nebulized 0.2 MG/ML] Lisinopril [Zestril] 10 mg PO DAILY 09/27/18 09/27/18 Loratadine [Claritin] 10 mg PO DAILY 09/27/18 09/27/18 Rifampin [Rifadin] 300 mg PO BID 09/27/18 09/27/18 Sulfamethox-Tmp 800-160Mg [Bactrim 1 tab PO Q12HR 09/27/18 09/27/18 DS 800-160 mg] Previous Rx's Medication Instructions Recorded amLODIPine [Norvasc] 10 mg PO HS #30 tab 07/17/17 Cephalexin [Keflex] 500 mg PO Q6HR #28 cap 09/27/18 Allergies Allergy/AdvReac Type Severity Reaction Status Date / Time methylprednisolone Allergy Severe Anaphylaxis Verified 09/27/18 16:47 Penicillins Allergy Unknown Verified 09/27/18 16:47 Review of Systems ROS Statement: Those systems with pertinent positive or pertinent negative responses have been documented in the HPI. ROS Other: All systems not noted in ROS Statement are negative. Past Medical History Past Medical History: Asthma, Hypertension Additional Past Medical History / Comment(s): Right foot multiple stress fractures-injury. Broncial Asthma, cataracts. History of Any Multi-Drug Resistant Organisms: None Reported Past Surgical History: No Surgical Hx Reported Past Anesthesia/Blood Transfusion Reactions: No Reported Reaction Past Psychological History: PTSD Smoking Status: Current every day smoker Past Alcohol Use History: None Reported Past Drug Use History: None Reported - Past Family History Father Family Medical History: No Reported History Mother Family Medical History: No Reported History General Exam Limitations: no limitations General appearance: alert, in no apparent distress Head exam: Present: atraumatic, normocephalic, normal inspection Eye exam: Present: normal appearance, PERRL, EOMI. Absent: scleral icterus, conjunctival injection, periorbital swelling ENT exam: Present: normal oropharynx, mucous membranes moist, TM's normal bilaterally. Absent: normal exam (Right lower jaw, facial swelling noted, 2 cm abscess minimal fluctuant) Neck exam: Present: normal inspection, full ROM. Absent: tenderness, meningismus, lymphadenopathy Respiratory exam: Present: normal lung sounds bilaterally. Absent: respiratory distress, wheezes, rales, rhonchi, stridor Skin exam: Present: warm, dry, intact Course Vital Signs 09/27/18 15:49 Temperature 98.4 F Pulse Rate 78 Respiratory 20 Rate Blood Pressure 186/79 O2 Sat by Pulse 99 Oximetry Procedures - Incision & Drainage Consent Obtained: verbal consent Site: face Size (cm): 2 Anesthetic Used: lidocaine 1%, without epi Amount (mLs): 4 I&D Cleaning Method: Alcohol Wipe Needle Aspiration Performed?: Yes Irrigation Performed?: No I&D Drainage Obtained: Pus, Blood Culture Obtained?: No Patient Tolerated Procedure: well, no complications Medical Decision Making - Medical Decision Making 43-year-old male presented for abscesses right-sided face. This was I&D in emergency department. There is minimal discharge secondary to being minimally fluctuant. Patient will continue Bactrim and will be given Keflex. Return parameters were discussed. Disposition Clinical Impression: Facial abscess Disposition: HOME SELF-CARE Condition: Stable Instructions (If sedation given, give patient instructions): Abscess (ED), Abscess Incision and Drainage (ED) Additional Instructions: Please return to the Emergency Department if symptoms worsen or any other concerns. Prescriptions: Cephalexin [Keflex] 500 mg PO Q6HR #28 cap Is patient prescribed a controlled substance at d/c from ED?: No Referrals: Beverly Wills MD [Primary Care Provider] - 1-2 days Time of Disposition: 17:14
== END 2018-09-27 17:34 | disposition home or self-care (01) ==
LOC: EC 15:47
DX: L02.01 Cutaneous abscess of face (principal); J45.909 Unspecified asthma, uncomplicated; I10 Essential (primary) hypertension; F43.10 Post-traumatic stress disorder, unspecified; F17.200 Nicotine dependence, unspecified, uncomplicated; Z79.899 Other long term (current) drug therapy; Z88.0 Allergy status to penicillin; Z88.8 Allergy status to other drugs, medicaments and biological substances
CPT/HCPCS: 10160; 99282; J2001

== ENCOUNTER 2018-11-04 12:09 | Day surgery (SDC) | payer OTHER ==
[2018-11-04] MEDS ORDERED: LACTATED RINGERS 1,000 ML IV SCH (12:47)
[2018-11-04] MEDS ORDERED: LIDOCAINE 1% 20 ML VIAL (10MG/ML) FOR IV START INTRADERMA PRN (12:47)
== END 2018-11-04 12:48 | disposition home or self-care (01) ==
LOC: ORWHC2ENDO 12:09
DX: R19.4 Change in bowel habit (principal); Z53.8 Procedure and treatment not carried out for other reasons

== ENCOUNTER 2018-12-12 07:27 | Day surgery (SDC) | payer OTHER ==
[2018-12-11 12:04] VITALS: BMI 50.2
[~2018-12-12 07:27] MED LIST: LACTATED RINGERS 1,000 ML IV SCH; LIDOCAINE 1% 20 ML VIAL (10MG/ML) FOR IV START INTRADERMA PRN
[2018-12-12] MEDS ORDERED: GLYCOPYRROLATE 0.2 MG/ML 2 ML VIAL ONE (08:10)
[2018-12-12] MEDS ORDERED: PROPOFOL 10 MG/ML 20 ML VIAL IV ONE (08:10)
[2018-12-12] MEDS ORDERED: LIDOCAINE 1% INJ 10MG/ML (20 ML MDV) ONE (08:10)
[2018-12-12] MEDS ORDERED: ALBUTEROL NEBULIZED 1.25 MG/3 ML INHALATION ONE (09:01)
[2018-12-12 09:05] VITALS: TEMP 97.6
--- NOTE | 2018-12-12 09:07 | P.PCN ---
Date of Procedure: 12/12/18 Procedure(s) Performed: Procedures: 1. Esophagogastroduodenoscopy and biopsy. 2. Colonoscopy and biopsy. Reoperative diagnosis: Heartburn and change in bowel habits. Postoperative diagnosis: 1. Hiatal hernia and LA grade B distal esophagitis. 2. Gastritis and duodenitis. 3. Biopsies obtained from the duodenum, antrum and esophagus. 4. Colon and terminal ileum within normal limits. 5. Biopsies obtained from the terminal ileum and right colon. Preparation: HalfLytely prep. Sedation: Was provided by anesthesia. Brief clinical history: The patient is a 43-year-old male who I have evaluated in the office in September 2018 for history of diarrhea. This has been going on for at least one year and apparently followed a gastroenteritis-like illness. He reported severe cramps with bowel movements. He does have history of heartburn in the past but not recently. No prior colonoscopy. He is adopted and not sure if there is family history of inflammatory bowel disease or celiac disease. Procedure: With the patient on his left lateral decubitus position and after informed consent and adequate sedation, I passed the Olympus-GIF H190 video upper endoscope through the cricopharyngeus down the esophagus. GE junction was around 42-43 cm from the incisors and there was a 2-3 cm sliding hiatal hernia and LA grade B distal esophagitis consistent with reflux esophagitis. There was no strictures or Sandoval's esophagus. The endoscope was then passed into the stomach which was insufflated with air and inspected in detail including the retroflex view in the cardia. There was mottling and erythema and linear erosions in the antrum and prepyloric area but no ulcers or bleeding. Pyloric channel did not show any ulcers. Duodenal bulb showed mottling, erythema and superficial erosions and small ulcerations covered with white exudate but no bleeding or gastric outlet obstruction. I obtained biopsies from the duodenum, antrum and esophagus then the endoscope was withdrawn and I proceeded to perform the colonoscopy. Perianal area did not show any fissures or fistulas. There were no masses felt on digital rectal examination. The Olympus CFH 190L video colonoscope was then inserted in the rectum in the usual fashion and advanced to the cecum. I intubated the ileocecal valve and examined the terminal ileum. Terminal ileum and colon appeared healthy with no edema, erythema, friability, ulceration, exudation or spontaneous bleeding. No polyps or tumors were seen or any obvious diverticular disease or other pathology. I retroflexed the endoscope in the rectum before the endoscope was withdrawn. I also obtained biopsies from the terminal ileum and right colon. The patient tolerated the procedure well. Plan: The patient was reassured. Will await biopsy results. Further plans will be made based on his course and biopsy results. For screening for colon cancer, I suggested repeat colonoscopy in 10 years. He will follow up with you as planned and I will keep you updated on his progress.
[2018-12-12 09:20] VITALS: RESP 18
[2018-12-12 09:57] VITALS: BP 148/79; PULSE 72
== END 2018-12-12 10:28 | disposition home or self-care (01) ==
LOC: ORWHC2ENDO 07:27
DX: K44.9 Diaphragmatic hernia without obstruction or gangrene (principal); K29.80 Duodenitis without bleeding; K29.50 Unspecified chronic gastritis without bleeding; K22.10 Ulcer of esophagus without bleeding; I10 Essential (primary) hypertension; F17.200 Nicotine dependence, unspecified, uncomplicated; E66.9 Obesity, unspecified; Z68.43 Body mass index [BMI] 50.0-59.9, adult; J45.909 Unspecified asthma, uncomplicated; Z79.899 Other long term (current) drug therapy; Z88.0 Allergy status to penicillin; Z88.8 Allergy status to other drugs, medicaments and biological substances
CPT/HCPCS: 88305; 88312; 45380; 43239; J2001; J2704

== ENCOUNTER 2023-09-03 09:30 | Emergency (ER) | payer OTHER ==
--- NOTE | 2023-09-03 10:41 | ED ---
Back Pain HPI - General Chief Complaint: Neck Pain/Injury Stated Complaint: L hip pain, numbness in L leg Time Seen by Provider: 09/03/23 10:23 Source: patient, family, RN notes reviewed Mode of arrival: ambulatory Limitations: no limitations - History of Present Illness Initial Comments: This is a 48-year-old male who presents to the emergency department for problems related to sciatica. States that he gets sciatica flareups every now and then for unknown reasons, and has had a flareup for the last 2 to 3 days. States that pain radiates down the left lower back and down the left leg. He also has radiation of pain into the left testicle. He has had ultrasounds and been evaluated by urology before regarding this pain, and has always been told that it is related to the sciatica. Denies any loss of bowel/bladder control or saddle anesthesia. Also denies any injuries. MD Complaint: back pain - Related Data Home Medications Medication Instructions Recorded Confirmed Escitalopram [Lexapro] 10 mg PO HS 07/15/17 12/12/18 Albuterol Nebulized [Ventolin 2.5 mg INHALATION RT-QID PRN 09/27/18 12/12/18 Nebulized] Albuterol Sulfate [Proair Hfa] 2 puff INHALATION RT-QID PRN 09/27/18 12/12/18 Ipratropium Nebulized [Atrovent 0.5 mg INHALATION RT-QID PRN 09/27/18 12/12/18 Nebulized 0.2 MG/ML] lisinopriL [Zestril] 10 mg PO HS 09/27/18 12/12/18 diphenhydrAMINE [Benadryl] 25 mg PO QID PRN 12/11/18 12/12/18 Previous Rx's Medication Instructions Recorded amLODIPine [Norvasc] 10 mg PO HS #30 tab 07/17/17 Ibuprofen [Motrin] 800 mg PO Q8H PRN #30 tab 09/03/23 methocarbamoL [Robaxin-750] 1,500 mg PO TID PRN #30 tab 09/03/23 Allergies Allergy/AdvReac Type Severity Reaction Status Date / Time methylprednisolone Allergy Severe Anaphylaxis Verified 03/08/21 07:18 Penicillins Allergy Unknown Verified 03/08/21 07:18 Review of Systems ROS Statement: Those systems with pertinent positive or pertinent negative responses have been documented in the HPI. ROS Other: All systems not noted in ROS Statement are negative. Past Medical History Past Medical History: Asthma, COPD, Hypertension Additional Past Medical History / Comment(s): Right foot multiple stress fractures-injury. Broncial Asthma, cataracts. History of Any Multi-Drug Resistant Organisms: MRSA Date of last positivie culture/infection: 09/27/18 MDRO Source:: FACE MRSA Past Surgical History: No Surgical Hx Reported Past Anesthesia/Blood Transfusion Reactions: No Reported Reaction Additional Past Anesthesia/Blood Transfusion Reaction / Comment(s): never has had anesthesia or blood transfusion Past Psychological History: PTSD Smoking Status: Former smoker Past Alcohol Use History: None Reported Past Drug Use History: Marijuana - Past Family History Father Family Medical History: No Reported History Mother Family Medical History: No Reported History General Exam Limitations: no limitations General appearance: alert, in no apparent distress Head exam: Present: atraumatic, normocephalic, normal inspection Respiratory exam: Present: normal lung sounds bilaterally. Absent: respiratory distress, wheezes, rales, rhonchi, stridor Cardiovascular Exam: Present: regular rate, normal rhythm, normal heart sounds. Absent: systolic murmur, diastolic murmur, rubs, gallop, clicks Back exam: Present: tenderness (Left lower back) Neurological exam: Present: alert, oriented X3, CN II-XII intact Psychiatric exam: Present: normal affect, normal mood Skin exam: Present: warm, dry, intact, normal color. Absent: rash Course Vital Signs 09/03/23 09/03/23 09:42 12:30 Temperature 98.4 F Pulse Rate 65 59 L Respiratory 16 12 Rate Blood Pressure 198/75 132/85 O2 Sat by Pulse 98 97 Oximetry Medical Decision Making - Medical Decision Making This is a 48 year old male who presents to the emergency department for back pain. Was pt. sent in by a medical professional or institution? @ -No Did you speak to anyone other than the patient for history? @ -No Did you review nursing and triage notes? @ -Yes, and I agree, it is accurate with regards to the patient's symptoms. Were old charts reviewed? @ -No Differential Diagnosis? @ -Differential Back Pain: Strain, zoster, cauda equina syndrome, epidural abscess, vertebral osteomyelitis, discitis, fracture, subluxation, disc herniation, DJD, spinal stenosis, dissection, AAA, pancreatitis, peptic ulcer disease, pyelonephritis, kidney stone, this is not meant to be an all-inclusive list. EKG interpreted by me (3pts min.)? @ -Not obtained X-rays interpreted by me (1pt min.)? @ -Not obtained CT interpreted by me (1pt min.)? @ -Not obtained U/S interpreted by me (1pt. min.)? @ -Not obtained What testing was considered but not performed? (CT, X-rays, U/S, labs)? Why? @ -None What meds were considered but not given? Why? @ -None Did you discuss the management of the patient with other professionals? @ -No Did you reconcile home meds? @ -No Was smoking cessation discussed for >3mins.? @ -I discussed smoking cessation for greater than 3 minutes. The risk of smoking were discussed with the patient including but not limited to risks of cancer, stroke, coronary artery disease and COPD. Also discussed with patient were multiple methods of quitting smoking. Lastly we discussed the financial cost of smoking. Was critical care preformed (if so, how long)? @ -No Were there social determinants of health that impacted care today? How? (Ho melessness, low income, unemployed, alcoholism, drug addiction, transportation, low edu. Level, literacy, decrease access to med. care, nursing home, rehab)? @ -No Was there de-escalation of care discussed even if they declined? (Discuss DNR or withdrawal of care, Hospice)? @ -No What co-morbidities impacted this encounter? (DM, HTN, Smoking, COPD, CAD, Cancer, CVA, Hep., AIDS, mental health diagnosis, sleep apnea, morbid obesity)? @ -Morbid obesity, smoking Was patient admitted / discharged? @ -Discharged. Given that the patient sustained no injuries and symptoms were consistent with prior bouts of sciatica, no imaging was obtained. Symptoms well-controlled in the emergency department. Patient reports anaphylactic reaction to steroids, and will thus treat him with NSAIDs and muscle relaxants. Prescription for ibuprofen and Robaxin provided with dosing instructions reviewed. Patient discharged home in stable condition and advised to follow-up with his primary care provider. Undiagnosed new problem with uncertain prognosis? @ -None Drug Therapy requiring intensive monitoring for toxicity (Heparin, Nitro, Insulin, Cardizem)? @ -None Were any procedures done? @ -None Diagnosis/symptom? @ -Sciatica Acute, or Chronic, or Acute on Chronic? @ -Acute Uncomplicated (without systemic symptoms) or Complicated (systemic symptoms)? @ -Uncomplicated Side effects of treatment? @ -None Exacerbation, Progression, or Severe Exacerbation] @ -Not applicable Poses a threat to life or bodily function? @ -No Return precautions reviewed in depth, the patient is instructed to return to the emergency department with any new, worsening, or concerning symptoms. Patient verbalized understanding. This case was discussed in detail with the attending ED physician, Dr. Doss. Presentation, findings, and treatment plan discussed in detail as well. Disposition Clinical Impression: Sciatica, left side, Nicotine dependence Disposition: HOME SELF-CARE Instructions (If sedation given, give patient instructions): Sciatica (ED), Lumbar Radiculopathy (ED) Additional Instructions: Return to the emergency department with any new, worsening, or concerning symptoms. Alternate with ibuprofen and Tylenol as needed for pain relief. You can take the Robaxin as 1 to 2 tablets up to 3-4 times daily. Be aware that this may make you drowsy. You can also apply lidocaine patches daily. Follow up with your primary care provider in 1-2 days. Prescriptions: Ibuprofen [Motrin] 800 mg PO Q8H PRN #30 tab PRN Reason: Pain methocarbamoL [Robaxin-750] 1,500 mg PO TID PRN #30 tab PRN Reason: Pain Is patient prescribed a controlled substance at d/c from ED?: No Referrals: Stephanie Esquivel [Primary Care Provider] - 1-2 days Time of Disposition: 12:04
[2023-09-03] MEDS: MORPHINE SULFATE 4 MG/ML SYRINGE IVP STA (10:51)
[2023-09-03] MEDS: ORPHENADRINE 30 MG/ML 2 ML VIAL IVP STA (10:53)
[2023-09-03] MEDS: KETOROLAC 15 MG/ML 1 ML VIAL IVP STA (10:53)
[2023-09-03 12:21] VITALS: TEMP 98.4
[2023-09-03] MEDS: traMADol 50 MG STARTER PACK 3 TAB BTL PO STA (12:25)
[2023-09-03 12:56] VITALS: BP 132/85; PULSE 59; RESP 12
== END 2023-09-03 12:32 | disposition home or self-care (01) ==
LOC: EC 09:30
DX: M54.42 Lumbago with sciatica, left side (principal); E66.01 Morbid (severe) obesity due to excess calories; J44.89 Other specified chronic obstructive pulmonary disease; I10 Essential (primary) hypertension; F12.90 Cannabis use, unspecified, uncomplicated; Z79.51 Long term (current) use of inhaled steroids; Z79.899 Other long term (current) drug therapy; Z88.0 Allergy status to penicillin; Z88.8 Allergy status to other drugs, medicaments and biological substances; Z68.43 Body mass index [BMI] 50.0-59.9, adult; Z87.891 Personal history of nicotine dependence
CPT/HCPCS: 99406; 99283; 96374; 96375 ×2; J2270; J2360; J1885